=== PATIENT | female | born 1950 | race Caucasian/White ===

== ENCOUNTER 2022-07-03 09:39 | Emergency (ER) | payer MEDICARE, SELFPAY ==
--- NOTE | 2022-07-03 09:41 | ED.URI ---
HPI - URI/Sore Throat General Chief Complaint: Upper Respiratory Infection Stated Complaint: Cough/Chest Congestion Time Seen by Provider: 07/03/22 09:41 Source: patient and RN notes reviewed History of Present Illness HPI Narrative: Patient is a 72-year-old female who presents to urgent care with complaints of cough, nasal congestion and postnasal drainage. Patient states that started 2 days ago patient has been using DayQuil and NyQuil. Denies any fevers, nausea, vomiting or ill exposures. No other acute complaints. No acute distress noted. Patient aware of the plan of care. Some parts of this dictation were generated by voice recognition software and may contain typographical and/or grammatical inaccuracies. Related Data Home Medications Medication Instructions Recorded Confirmed atenolol 50 mg tablet 50 mg PO DAILY 07/03/22 07/03/22 atorvastatin 20 mg tablet 20 mg PO DAILY 07/03/22 07/03/22 chlorthalidone 25 mg tablet 25 mg PO DAILY 07/03/22 07/03/22 gabapentin 300 mg capsule 300 mg PO BID 07/03/22 07/03/22 glipizide 5 mg tablet 5 mg PO USEASDIRECTD 07/03/22 07/03/22 metformin 500 mg tablet 1,000 mg PO BID 07/03/22 07/03/22 Allergies Allergy/AdvReac Type Severity Reaction Status Date / Time Penicillins Allergy Rash Verified 07/03/22 10:00 Review of Systems Review of Systems: CONSTITUTIONAL: Denies fever, chills, or sweats. EYES: Denies visual changes, redness, or discharge. ENT: Reports postnasal drainage, congestion CARDIOVASCULAR: Denies chest pain, palpitations, or edema. RESPIRATORY: reports of cough without dyspnea GASTROINTESTINAL: Denies abdominal pain, nausea, vomiting, or diarrhea. GENITOURINARY: Denies dysuria or hematuria. SKIN: Denies rash or itching. MUSCULOSKELETAL: Denies back pain, joint pain, or myalgia. NEUROLOGIC: Denies headache, numbness, or weakness. All other systems reviewed are negative, except as documented in HPI. PMFSH Comments At the time of my signature, I reviewed and agree with the nursing past medical, surgical, social, and family history. There is no relevant family history pertinent to the patient complaint. Exam Narrative: GENERAL: This is a well-nourished, well-developed patient, in no apparent distress. HEAD: normocephalic, atraumatic. EYES: PERRL. Sclera clear/white. Vision is grossly intact. EARS: External ears normal, auditory canals clear and without drainage, TMs normal without perforation. Hearing grossly intact. NOSE: External nose normal with no obvious nasal discharge, nares without redness, no rhinorrhea. THROAT: Mucous membranes moist, posterior pharynx clear. moderate postnasal drainage NECK: Neck supple, non-tender without lymphadenopathy RESPIRATORY: harsh nonproductive cough noted on exam. Clear to auscultation. Breath sounds equal bilaterally. No wheezes, rales, or rhonchi. SKIN: warm, intact with no suspicious lesions or rash, good texture and turgor. NEURO: awake, alert, and oriented to person, place and time. There were no obvious focal neurologic abnormalities. EXTREMITIES: No clubbing, cyanosis, or edema. Course Course Level of Care: Express Care Visit Vital Signs Vital signs: Vital Signs Temperature 97.4 F L 07/03/22 09:56 Pulse Rate 111 H 07/03/22 09:56 Respiratory Rate 16 07/03/22 09:56 Blood Pressure 144/71 H 07/03/22 09:56 Pulse Oximetry 99 07/03/22 09:56 Oxygen Delivery Room Air 07/03/22 09:56 Temperature 97.4 F L 07/03/22 09:56 Pulse Rate 111 H 07/03/22 09:56 Respiratory Rate 16 07/03/22 09:56 Blood Pressure 144/71 H 07/03/22 09:56 Pulse Oximetry 99 07/03/22 09:56 Oxygen Delivery Room Air 07/03/22 09:56 reviewed- Patient is informed that they may have pre-hypertension or hypertension based on a blood pressure reading in the department. I recommend the patient call the primary care provider listed on their discharge instructions or a physician of their choice this week to arrange follow-u
[2022-07-03 09:56] VITALS: BP 144/71; PULSE 111; RESP 16; TEMP 36.3; O2SAT 99
== END 2022-07-03 10:10 | disposition home or self-care (01) ==
PROVIDERS: Emergency Provider Nurse Practitioner Family; PCP Family Medicine
DX: J00 Acute nasopharyngitis [common cold] (principal)
CPT/HCPCS: 99213; G0463